=== PATIENT | male | born 1975 | race Caucasian/White ===

== ENCOUNTER 2021-12-23 07:09 | Outpatient (REF) | payer BC, SELFPAY ==
[2021-12-23 12:03] LABS: Appearance Urine Clear; Color Urine Yellow; Glucose Urine UA Negative (Negative); Leukocyte Esterase Urine Small (1+) (Negative); Nitrite Urine Negative (Negative); UMIC TRIGGER UA YES; Urine Blood Negative (Negative); Urine Ketones Negative (Negative); Urine Protein Negative (Neg-Trace)
[2021-12-23 12:05] LABS: MANUAL DIFF FLAG NO
[2021-12-23 12:06] LABS: Basophils Percent Auto 0.9 % (0-2); Eosinophils Absolute Auto 0.2 X10*3/uL (0.0-0.4); Eosinophils Percent Auto 4.7 % (0-4); Hemoglobin 16.6 g/dl (14.0-18.0); Imm Gran Abs Auto 0.01 X10*3/uL (0.00-0.03); Imm Gran Pct Auto 0.2 % (0.0-0.4); Lymphocytes Absolute Auto 1.1 X10*3/uL (1.2-4.9); Lymphocytes Percent Auto 26.2 % (20-40); Mean Corpuscular HGB Conc 33.9 g/dl (31.0-36.0); Mean Corpuscular Hemoglobin 30.5 pg (27.0-33.0); Mean Corpuscular Volume 90.1 fL (80.0-98.0); Mean Platelet Volume 11.2 fL (9.4-12.4); Monocytes Absolute Auto 0.4 X10*3/uL (0.1-1.2); Monocytes Percent Auto 9.6 % (2-11); Neutrophils Absolute Auto 2.5 x10*3/uL (2.0-8.3); Neutrophils Percent Auto 58.4 % (45-73); Platelet Count 218 X10*3/uL (160-400); Red Blood Count 5.44 X10*6/uL (4.60-5.80); Red Cell Distribution Width 12.5 % (11.0-16.0); White Blood Count 4.3 X10*3/uL (4.8-10.8)
[2021-12-23 12:20] LABS: Bacteria Urine None Seen (None Seen); Hyaline Casts Urine 0-2 /LPF (0-2); RBC Urine 0-2 /HPF (0-2); Squamous Epithelial Cell Urine 0-2 /HPF (0-2); WBC Urine 0-5 /HPF (0-5)
[2021-12-23 12:56] LABS: Alanine Aminotransferase 21 U/L (0-40); Albumin Level 4.8 g/dL (3.5-5.0); Alkaline Phosphatase 61 U/L (39-117); Anion Gap 17 (12-20); Aspartate Amino Transferase 17 U/L (5-37); Bilirubin Total 1.3 mg/dL (0.0-1.0); Blood Urea Nitrogen 19 mg/dL (9-16); Calcium 9.9 mg/dL (8.4-10.2); Carbon Dioxide 25 mmol/L (22-29); Chloride 102 mmol/L (96-108); Cholesterol 207 mg/dL; Estimated Glomerular Filt Rate 60; Glucose Fasting 107 mg/dL (60-99); HDL Cholesterol 53 mg/dL; LDL Cholesterol Calculated 136 mg/dl; Potassium 4.9 mmol/L (3.3-5.1); Sodium 139 mmol/L (135-145); Total Protein 7.3 g/dL (6.5-8.0); Triglycerides 90 mg/dL
[2021-12-24 15:57] LABS: Calcium (PTHI) 9.8 mg/dL (8.6-10.3); PTHI 44 pg/mL (16-77)
== END 2021-12-23 07:10 | disposition home or self-care (01) ==
LOC: HO.HMGCLDS 07:09
PROVIDERS: PCP Internal Medicine; Visit Provider Internal Medicine
DX: Z00.00 Encounter for general adult medical examination without abnormal findings (principal)
CPT/HCPCS: 36415; 80053; 80061; 81001; 81003; 83970; 85025

== ENCOUNTER 2023-09-21 06:53 | Outpatient (REF) | payer BC, SELFPAY ==
[2023-09-21 10:22] LABS: MANUAL DIFF FLAG NO
[2023-09-21 10:39] LABS: Basophils Percent Auto 0.7 % (0-2); Eosinophils Absolute Auto 0.2 X10*3/uL (0.0-0.4); Eosinophils Percent Auto 3.3 % (0-4); Hematocrit 48.1 % (42.0-52.0); Hemoglobin 16.6 g/dl (14.0-18.0); Imm Gran Abs Auto 0.01 X10*3/uL (0.00-0.03); Imm Gran Pct Auto 0.2 % (0.0-0.4); Lymphocytes Absolute Auto 1.3 X10*3/uL (1.2-4.9); Lymphocytes Percent Auto 29.1 % (20-40); Mean Corpuscular HGB Conc 34.5 g/dl (31.0-36.0); Mean Corpuscular Hemoglobin 30.7 pg (27.0-33.0); Mean Corpuscular Volume 88.9 fL (80.0-98.0); Mean Platelet Volume 11.2 fL (9.4-12.4); Monocytes Absolute Auto 0.4 X10*3/uL (0.1-1.2); Monocytes Percent Auto 9.3 % (2-11); Neutrophils Absolute Auto 2.6 x10*3/uL (2.0-8.3); Neutrophils Percent Auto 57.4 % (45-73); Platelet Count 181 X10*3/uL (160-400); Red Blood Count 5.41 X10*6/uL (4.60-5.80); Red Cell Distribution Width 12.5 % (11.0-16.0); White Blood Count 4.5 X10*3/uL (4.8-10.8)
[2023-09-21 11:04] LABS: Alanine Aminotransferase 21 U/L (0-40); Albumin Level 4.5 g/dL (3.5-5.0); Alkaline Phosphatase 50 U/L (39-117); Anion Gap 14 (12-20); Aspartate Amino Transferase 18 U/L (5-37); Bilirubin Total 1.5 mg/dL (0.0-1.0); Blood Urea Nitrogen 14 mg/dL (9-16); Calcium 10.1 mg/dL (8.4-10.2); Carbon Dioxide 25 mmol/L (22-29); Chloride 105 mmol/L (96-108); Cholesterol 198 mg/dL (<200); Estimated Glomerular Filt Rate > 60; Glucose Fasting 98 mg/dL (60-99); HDL Cholesterol 55 mg/dL (>40); LDL Cholesterol Calculated 124 mg/dL (<100); Potassium 4.5 mmol/L (3.3-5.1); Sodium 139 mmol/L (135-145); Total Protein 7.1 g/dL (6.5-8.0); Triglycerides 95 mg/dL (<150)
== END 2023-09-21 06:54 | disposition home or self-care (01) ==
LOC: HO.HMGCLDS 06:53
PROVIDERS: PCP Internal Medicine; Visit Provider Internal Medicine
DX: E78.00 Pure hypercholesterolemia, unspecified (principal); N18.9 Chronic kidney disease, unspecified
CPT/HCPCS: 36415; 80053; 80061; 85025

== ENCOUNTER 2024-08-14 12:53 | Outpatient (AMB) | payer BC, SELFPAY ==
--- NOTE | 2024-08-14 13:04 | A.OFFPC_ITS ---
Vital Signs 08/14/24 13:05 Height 6 ft 4.38 in Weight 189 lb BMI 22.8 BP 179/98 H Respiration 16 Pulse 105 H Pulse Source Pulse Oximeter Temp 97.8 F Temp Source Temporal Artery Scan Pulse Oximetry (%) 99 Oxygen Delivery Method Room Air Intake Visit Reasons: Establish Care Economic Research Assistant Required: No Accompanied by: Self / Same As Patient Allergies No Known Allergies Allergy (Verified 08/14/24 13:05) Tobacco use date assessed: 08/14/24 Dental Screening Dental Screen Date: 08/14/24 Did you have a dental visit in the last 12 months?: No Did you have a dental problem in the last 6 months where you did not have access to dental care?: No HPI Establish Care HPI Details 48-year-old male presents to the office to establish his care. Patient reports pain in the left shoulder with tingling sensation in the left hand, especially the 4th and 5th digit. He was involved in working around the [employer] and had done some heavy work a few weeks ago. Patient also would like to have his ears checked for wax. [facility] Medical History (Updated 08/14/24 @ 13:33 by Kemar Bazan MD) Essential hypertension Family History Father Glaucoma Mother Glaucoma Social History Housing: House Alcohol intake: current Alcohol intake frequency: does not drink Patient Tobacco Use Status: Never used Tobacco service: No Current occupational status: employed Cognitive needs: No Hearing needs: No Vision needs: No Questionnaire PHQ-9 Over the last 2 weeks, how often have you been bothered by any of the following problems? 1. Little interest or pleasure in doing things: not at all 2. Feeling down, depressed, or hopeless: not at all 3. Trouble falling or staying asleep, or sleeping too much: not at all 4. Feeling tired or having little energy: not at all 5. Poor appetite or overeating: not at all 6. Feeling bad about yourself - or that you are a failure or have let yourself or your family down: not at all 7. Trouble concentrating on things, such as reading the newspaper or watching television: not at all 8. Moving or speaking so slowly that other people could have noticed. Or the opposite - being so fidgety or restless that you have been moving around a lot more than usual: not at all 9. Thoughts that you would be better off or of hurting yourself in some way: not at all Total score: 0 Depression Screening Interpretation: Negative Depression Screening Done: Yes Source: Developed by Drs. Chinedu Toussaint, Ronda West, Fab Tipton and colleagues, with an educational jakob from [employer]. Thrive Questionnaire Date Thrive assessed: 08/14/24 I am a: Patient What is your living situation today?: I have a steady place to live Within the past 12 months, did the food you bought not last and you didn't have the money to get more?: Never true Within the past 12 months, did you worry whether your food would run out before you got money to buy more?: Never true Do you have trouble paying for medicines?: No Do you have trouble getting transportation to medical appointments?: No Do you have trouble paying your heating and electricity bill?: No Do you have trouble taking care of your child, family member or friend?: No Do you have trouble with day-to-day activities such as bathing, preparing meals, shopping, managing finances, etc.?: No Are you currently unemployed and looking for a job?: No Are you interested in more education?: No Please select the resources that you would like help with: None Currently or been in a relationship where the following occur: No concerns reported THRIVE Score: 0 AUDIT C Alcohol Use Questionnaire (AUDIT-C) 1. How often do you have a drink containing alcohol?: Never 3. How often do you have six or more drinks on one occasion?: Never Total Score: 0 ELDER-7 AMB Questionnaire ELDER-7 Date ELDER - 7 assessed: 08/14/24 Feeling nervous, anxious, or on edge: 0 = Not at all Not being able to stop or control worryin = Not at all Worrying too much about different things: 0 = Not at all Trouble relaxin = Not at all Being so restless that it is hard to sit still: 0 = Not at all Becoming easily annoyed or irritable: 0 = Not at all Feeling afraid as if something awful might happen: 0 = Not at all Total ELDER-7 score (0-4 normal; 5-9 mild; 10-14 moderate; 15-21 severe): 0 Source: Developed by Drs. Chinedu Toussaint, Ronda West, Fab Tipton and colleagues, with an educational jakob from [employer]. Physical exam (Primary Care) Vital Signs: Last Vital Signs Temp 97.8 F 08/14/24 13:05 Pulse 105 H 08/14/24 13:05 Resp 16 08/14/24 13:05 BP 179/98 H 08/14/24 13:05 Pulse Ox 99 08/14/24 13:05 Oxygen Delivery Method Room Air 08/14/24 13:05 Care Plan Goal for BP management: Elevated blood pressure noted. Advised to maintain a log. BMI result Body Mass Index 22.8 Tobacco/Smoking Status: Tobacco use Status Tobacco use date assessed 08/14/24 08/14/24 13:11 Patient Tobacco Use Status Never used Tobacco 08/14/24 13:11 PHQ-9: PHQ-9 Score PHQ-9: Total score 0 08/14/24 13:11 Depression Screening Interpretation: Negative Thrive Assessment: Date of Thrive Assessment Date Thrive assessed 08/14/24 08/14/24 13:11 Currently or been in a relationship where the following occur: No concerns reported Const General: cooperative and healthy appearing Nutritional Appearance: well nourished Orientation/consciousness: patient oriented x3 Limitations: no limitations HENMT Head: Yes normal to inspection Eyes General: appearance normal, both eyes and all related structures Neck Neck: Yes normal visual inspection Chest Chest palpation & inspection: normal palpation of entire chest wall Resp Effort & Inspection: normal respiratory effort Neuro General: patient oriented x3 Coding Level of Care Code New Pt Level 4 (79800) Complex EM visit Add On G2211 Diagnoses Essential hypertension I10 Assessment & Plan Assessment & Plan (1) Essential hypertension: Code(s): I10 - Essential (primary) hypertension Category: Medical Plan: patient is hesitant to start medications. He believes it could be 'white coat effect'. Advised to check BP at home every day, maintain a log and bring in the readings in two weeks. Two week follow up appt is given.
[2024-08-14 13:05] VITALS: BP 179/98; PULSE 105; RESP 16; TEMP 36.6; O2SAT 99; BMI 22.8
== END 2024-08-14 13:34 | disposition home or self-care (01) ==
LOC: HO.HMCSH 12:53
PROVIDERS: PCP Internal Medicine; Visit Provider Internal Medicine
DX: I10 Essential (primary) hypertension (principal)

== ENCOUNTER → 2024-08-14 12:53 | Outpatient (BNVA) | payer BC, SELFPAY | PROVIDERS: PCP Internal Medicine; Visit Provider Internal Medicine | DX: Z13.89 Encounter for screening for other disorder (principal) ==

== ENCOUNTER 2024-08-28 10:24 | Outpatient (AMB) | payer BC, SELFPAY ==
--- NOTE | 2024-08-28 10:28 | A.OFFPC_ITS ---
Vital Signs 08/28/24 10:29 Height 6 ft 4.38 in Weight 190 lb BMI 22.9 BP 150/90 H Blood Pressure Location Rt brachial Position Sitting Respiration 14 Pulse 99 Pulse Source Pulse Oximeter Temp 98.3 F Temp Source Temporal Artery Scan Pulse Oximetry (%) 100 Intake Visit Reasons: 2 week f/u; BP check Valet Attendant Required: No Accompanied by: Self / Same As Patient Allergies No Known Allergies Allergy (Verified 08/28/24 10:41) Medication List - Last Reconciled 08/28/24 by Eleanor Finn PA-C No Known Home Meds Tobacco use date assessed: 08/28/24 Dental Screening Dental Screen Date: 08/14/24 HPI 2 week f/u; BP check HPI Details The patient is a 48-year-old male presenting for a blood pressure recheck. The patient reports that his blood pressure readings at home have been normal for him, although they are not taken daily due to using a work-based machine. The readings have been in the range of 130s over 70s or 80s, which he considers slightly high. He has used multiple machines to verify his blood pressure, including borrowing from colleagues, and has received assistance in taking measurements. The patient expresses anxiety in various situations, which may affect his blood pressure readings. During the visit, his blood pressure was measured at 150/90 mmHg, which is an improvement from a previous reading of 190/100 mmHg. He prefers to monitor his blood pressure rather than start medication at this time. Social History - Employment: Uses a work-based blood pr essure machine for monitoring. - Anxiety: Reports social anxiety which may affect blood pressure readings. [facility] Medical History Essential hypertension Family History Father Glaucoma Mother Glaucoma Social History Housing: House Alcohol intake: current Alcohol intake frequency: does not drink Patient Tobacco Use Status: Never used Tobacco service: No Current occupational status: employed Cognitive needs: No Hearing needs: No Vision needs: No Questionnaire PHQ-9 Over the last 2 weeks, how often have you been bothered by any of the following problems? 1. Little interest or pleasure in doing things: not at all 2. Feeling down, depressed, or hopeless: not at all 3. Trouble falling or staying asleep, or sleeping too much: not at all 4. Feeling tired or having little energy: not at all 5. Poor appetite or overeating: not at all 6. Feeling bad about yourself - or that you are a failure or have let yourself or your family down: not at all 7. Trouble concentrating on things, such as reading the newspaper or watching television: not at all 8. Moving or speaking so slowly that other people could have noticed. Or the opposite - being so fidgety or restless that you have been moving around a lot more than usual: not at all 9. Thoughts that you would be better off or of hurting yourself in some way: not at all Total score: 0 Depression Screening Interpretation: Negative Depression Screening Done: Yes 39488 - PHQ-9 Billing: Yes Source: Developed by Drs. Chinedu Toussaint, Ronda West, Fab Tipton and colleagues, with an educational jakob from [employer]. Thrive Questionnaire Date Thrive assessed: 08/14/24 I am a: Patient What is your living situation today?: I have a steady place to live Within the past 12 months, did the food you bought not last and you didn't have the money to get more?: Never true Within the past 12 months, did you worry whether your food would run out before you got money to buy more?: Never true Do you have trouble paying for medicines?: No Do you have trouble getting transportation to medical appointments?: No Do you have trouble paying your heating and electricity bill?: No Do you have trouble taking care of your child, family member or friend?: No Do you have trouble with day-to-day activities such as bathing, preparing meals, shopping, managing finances, etc.?: No Are you currently unemployed and looking for a job?: No Are you interested in more education?: No Please select the resources that you would like help with: None Currently or been in a relationship where the following occur: No concerns reported THRIVE Score: 0 AUDIT C Alcohol Use Questionnaire (AUDIT-C) 1. How often do you have a drink containing alcohol?: Never 3. How often do you have six or more drinks on one occasion?: Never Total Score: 0 Score Reviewed/Action Taken: No ELDER-7 AMB Questionnaire ELDER-7 Date ELDER - 7 assessed: 08/14/24 Feeling nervous, anxious, or on edge: 0 = Not at all Not being able to stop or control worryin = Not at all Worrying too much about different things: 0 = Not at all Trouble relaxin = Not at all Being so restless that it is hard to sit still: 0 = Not at all Becoming easily annoyed or irritable: 0 = Not at all Feeling afraid as if something awful might happen: 0 = Not at all Total ELDER-7 score (0-4 normal; 5-9 mild; 10-14 moderate; 15-21 severe): 0 Source: Developed by Drs. Chinedu Toussaint, Ronda West, Fab Tipton and colleagues, with an educational jakob from [employer]. Review of Systems Const Details: - Cardiovascular: Reports elevated blood pressure readings. Denies chest pain or palpitations. - Neurological: Denies dizziness or headaches. Physical exam (Primary Care) Vital Signs: Last Vital Signs Temp 98.3 F 08/28/24 10:29 Pulse 99 08/28/24 10:29 Resp 14 08/28/24 10:29 BP 190/100 H 08/28/24 10:29 Pulse Ox 100 08/28/24 10:29 Care Plan Goal for BP management: <140/90 patient to monitor his blood pressure at home recommended starting blood pressure medication although patient adamantl y declining understands the risks of heart attacks and strokes with uncontrolled blood pressure BMI result Body Mass Index 22.9 Tobacco/Smoking Status: Tobacco use Status Tobacco use date assessed 08/28/24 08/28/24 10:34 Patient Tobacco Use Status Never used Tobacco 08/28/24 10:34 Normal BMI PHQ-9: PHQ-9 Score PHQ-9: Total score 0 08/28/24 10:34 Depression Screening Interpretation: Negative Thrive Assessment: Date of Thrive Assessment Date Thrive assessed 08/14/24 08/28/24 10:34 Currently or been in a relationship where the following occur: No concerns reported Const Other: Appearance: Alert. Oriented X3. No acute distress. Head: Normal external exam. Normocephalic. Atraumatic. Eyes: Pupils are equal, round, and reactive to light. Extraocular movements intact. Conjunctiva and sclera normal. Eyelids normal. Throat: Pharynx normal. Uvula midline. Moist mucous membranes. Neck: Normal inspection. Neck supple. Full range of motion. Cardiovascular: Blood pressure recorded at 150/90. Normal heart rate and rhythm. Respiratory: No respiratory distress. Painless inspiration. Back: Full range of motion noted. Skin: Skin warm and dry. Normal skin color. Normal skin turgor. No rashes/lesions/lacerations noted. Extremities: Extremities exhibit normal range of motion. Coding Level of Care Code Est Pt Level 4 (25683) Diagnoses Essential hypertension I10 Additional Codes PHQ-9 - 21454 - PHQ-9 Billing: Yes ([id number]) Assessment & Plan Assessment & Plan (1) Essential hypertension: Code(s): I10 - Essential (primary) hypertension Category: Medical Plan: The patient is advised to continue monitoring his blood pressure at home using a reliable machine, preferably purchasing one for personal use. He is informed about the risks associated with high blood pressure, including the potential for heart attack and stroke. The patient prefers to avoid medication at this time and will follow up in three-12 months unless symptoms such as chest pain, dizziness, or severe headache occur, in which case he should seek immediate medical attention. He was offered blood pressure medication although patient declining. He understands risks. Will continue to monitor. Plan Plan Patient was informed and verbally consented to the use of an ambient scribe for clinic note documentation during this visit. 1. Essential Hypertension The patient is advised to continue monitoring his blood pressure at home using a reliable machine, preferably purchasing one for personal use. He is informed about the risks associated with high blood pressure, including the potential for heart attack and stroke. The patient prefers to avoid medication at this time and will follow up in three months unless symptoms such as chest pain, dizziness, or severe headache occur, in which case he should seek immediate medical attention. During the visit, I discussed with the patient the importance of monitoring his blood pressure regularly and the potential risks of untreated hypertension, such as heart attack and stroke. We talked about the option of starting medication, but the patient prefers to monitor his condition for now. I advised him to purchase a blood pressure cuff for more consistent monitoring and to return for a follow-up in three months unless he experiences concerning symptoms. Patient Instructions: - Monitor blood pressure regularly at home using a reliable machine. - Purchase a personal blood pressure cuff for consistent monitoring. - Be aware of symptoms such as chest pain, dizziness, or severe headache and [place] immediate medical attention if they occur. - Follow up in three months or sooner if symptoms develop.
[2024-08-28 10:29] VITALS: BP 150/90; PULSE 99; RESP 14; TEMP 36.8; O2SAT 100; BMI 22.9
== END 2024-08-28 10:58 | disposition home or self-care (01) ==
LOC: HO.HMCSH 10:25
PROVIDERS: PCP Internal Medicine; Visit Provider Physician Assistant Medical
DX: I10 Essential (primary) hypertension (principal)

== ENCOUNTER → 2024-08-28 10:24 | Outpatient (BNVA) | payer BC, SELFPAY | PROVIDERS: PCP Internal Medicine; Visit Provider Physician Assistant Medical | DX: I10 Essential (primary) hypertension (principal); Z13.31 Encounter for screening for depression | CPT/HCPCS: 96127 ==